=== PATIENT | female | born 1965 | race Two or more races ===

== ENCOUNTER 2023-12-05 11:22 | Emergency (ER) | payer OTHER ==
[~2023-12-05] VITALS: Ht 154.9 cm; Wt 58.5 kg
[2023-12-05] MEDS ORDERED: SYNTHROID75 MCG PO (11:30)
[2023-12-05] MEDS ORDERED: DEXTROSE 5 % AND 0.9 % NACL 500 ML IV STA (12:43)
[2023-12-05] MEDS ORDERED: FAMOTIDINE/PF 20 MG/2 ML VIAL IV PUSH STA (12:44)
[2023-12-05] MEDS ORDERED: ONDANSETRON HCL 2 MG/ML VIAL IV STA (12:44)
[2023-12-05] MEDS ORDERED: BISMUTH SUBSALICYLATE 524 MG/30 ML BLIST.PACK PO STA (14:41)
[2023-12-05] MEDS ORDERED: HYOSCYAMINE SULFATE 0.125 MG TAB.SUBL SL STA (14:41)
== END 2023-12-05 19:19 | disposition home or self-care (01) ==
LOC: ER 11:22
DX: B02.9 Zoster without complications (principal); T50.905A Adverse effect of unspecified drugs, medicaments and biological substances, initial encounter; R51.9 Headache, unspecified